=== PATIENT | female | born 2000 | race Asian ===

== ENCOUNTER 2024-11-14 09:54 | Outpatient (CLI) | payer OTHER, SELFPAY ==
[2024-11-16 09:14] LABS: HPV Source Cervix; HPV, High Risk by TMA Not Detected
== END 2024-11-14 09:55 | disposition home or self-care (01) ==
PROVIDERS: PCP Family Medicine; Visit Provider Registered Nurse
DX: Z12.4 Encounter for screening for malignant neoplasm of cervix (principal); Z11.51 Encounter for screening for human papillomavirus (HPV); Z13.29 Encounter for screening for other suspected endocrine disorder
CPT/HCPCS: 84443; 87624; 87625; 88141; 88142